=== PATIENT | female | born 1985 | race Caucasian/White ===

== ENCOUNTER 2017-04-11 22:01 | Emergency (ER) | payer MEDICAID ==
[2017-04-11 22:19] VITALS: BP 148/90
--- NOTE | 2017-04-11 22:46 | EDM.PDOC ---
ED HPI GENERAL MEDICAL PROBLEM - General Chief Complaint: ANIMAL ANATOMIST Problem Stated Complaint: Miscarriage Time Seen by Provider: 04/11/17 22:16 Source of Information: Reports: Patient History Limitations: Reports: No Limitations - History of Present Illness INITIAL COMMENTS - FREE TEXT/NARRATIVE: patient presents to ER with vaginal bleeding. She is 14 weeks however 2 weeks ago she was told there was no heartbeat and this was confirmed last week. 5 days ago she started having heavy vaginal bleeding with clots, since then she has had regular vaginal bleeding. Today the bleeding was very light and she was feeling pretty good. Tonight she was sitting and coughed and started passing a large amount of blood. she is also having some cramping. Denies dizziness or weakness. Location: Reports: Abdomen Quality: Reports: Sharp Severity: Moderate Improves with: Reports: None Worsens with: Reports: None Associated Symptoms: Reports: No Other Symptoms Lower Abdominal Pain Score (Numeric/FACES): 4 - Related Data Allergies Allergy/AdvReac Type Severity Reaction Status Date / Time Penicillins Allergy Rash Verified 04/11/17 22:13 Home Meds: Home Meds metFORMIN [Glucophage XR] 500 mg PO BID 10/24/16 [History] Past Medical History Cardiovascular History: Reports: Hypertension ANIMAL ANATOMIST History: Reports: Endocrine/Metabolic History: Reports: Other (See Below) Other Endocrine/Metabolic History: pre-diabetic - Past Surgical History Musculoskeletal Surgical History: Reports: Other (See Below) Social & Family History - Tobacco Use Smoking Status *Q: Current Every Day Smoker Years of Tobacco use: 13 Packs/Tins Daily: 0.5 - Recreational Drug Use Recreational Drug Use: No ED ROS GENERAL - Review of Systems Review Of Systems: ROS reveals no pertinent complaints other than HPI. ED EXAM - Physical Exam Exam: See Below Respiratory/Chest: No Respiratory Distress, Lungs Clear Cardiovascular: Regular Rate, Rhythm GI/Abdominal Exam: Normal Bowel Sounds, Soft, Tender Neurological: Alert, Oriented Skin Exam: Warm, Dry Course - Vital Signs Last Recorded V/S: Last Vital Signs Temp 37.2 C 04/11/17 22:18 Pulse 105 H 04/11/17 22:18 Resp 16 04/11/17 22:18 BP 148/90 H 04/11/17 22:18 Pulse Ox 97 04/11/17 22:18 - Orders/Labs/Meds Orders: Active Orders 24 hr Category Date Time Status QUANTITATIVE BHCG [REF] Stat Lab 04/11/17 22:21 Ordered Labs: Laboratory Tests 04/11/17 Range/Units 22:38 WBC 10.4 H (4.0-10.0) x10^3/uL RBC 4.56 (4.00-5.50) x10^6/uL Hgb 13.6 (12.0-16.0) g/dL Hct 39.7 (33.0-47.0) % MCV 87.1 (78.0-93.0) fL MCH 29.8 (26.0-32.0) pg MCHC 34.3 (32.0-36.0) g/dL RDW Coeff of Oma 13.7 (10.0-15.0) % Plt Count 231 (130-400) x10^3/uL Neut % (Auto) 61.1 (50.0-80.0) % Lymph % (Auto) 30.3 (25.0-50.0) % [place] % (Auto) 6.8 (2.0-11.0) % Eos % (Auto) 1.6 (0.0-4.0) % Baso % (Auto) 0.2 (0.2-1.2) % Meds: Medications Discontinued Medications Generic Name Dose Route Start Last Admin Trade Name Shaan PRN Reason Stop Dose Admin Morphine Sulfate 4 mg 04/11/17 23:04 Morphine IM 04/11/17 23:05 ONETIME ONE Departure - Departure Time of Disposition: 23:40 Disposition: Home, Self-Care 01 Condition: Good Clinical Impression: Miscarriage - Discharge Information Referrals: Mike Valdivia MD [ED Physician] - 1 Day (follow up tomorrow ) Forms: ED Department Discharge - Problem List & Annotations (1) Miscarriage SNOMED Code(s): 04910091 Code(s): O03.9 - COMPLETE OR UNSP SPONTANEOUS WITHOUT COMPLICATION Status: Acute Priority: Medium Current Visit: Yes - My Orders Last 24 Hours: My Active Orders 04/11/17 22:21 QUANTITATIVE BHCG [REF] Stat - Assessment/Plan Last 24 Hours: My Active Orders 04/11/17 22:21 QUANTITATIVE BHCG [REF] Stat Plan: patient to follow up with her ANIMAL ANATOMIST tomorrow. Advised ibuprofen 800mg every 6 hours for pain.
[2017-04-11] MEDS ORDERED: Morphine 4 MG/ML Syringe IM ONE (23:04)
== END 2017-04-11 23:22 | disposition home or self-care (01) ==
LOC: SUPCPDRO 22:01 → VM.ED 22:01
DX: O03.9 Complete or unspecified spontaneous abortion without complication (principal); O16.1 Unspecified maternal hypertension, first trimester; O99.331 Smoking (tobacco) complicating pregnancy, first trimester; Z3A.14 14 weeks gestation of pregnancy; Z88.0 Allergy status to penicillin
CPT/HCPCS: 36415; 84702; 85025; 96372; 99284; J2270

== ENCOUNTER 2017-04-21 16:37 | Emergency (ER) | payer MEDICAID ==
[2017-04-21 17:05] VITALS: BP 129/72
--- NOTE | 2017-04-21 17:13 | EDM.PDOC ---
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 She miscarried last week on Tuesday and had a D and C in [place] with Dr. Valdivia. She has been having bleeding and states that for the last couple days she has used 2-3 pads daily. When walking around today however, she felt a large gush and when she sat on the toilet had additional gushing into the toilet bowl of bright red blood. She states she is dizzy at times. She has some abdominal cramping. No SOB, chest pain, nausea/vomiting. She has been taking hydrocodone for pain management. Pain rated at 5-6/10. Onset: Today, Sudden Onset Date: 04/21/17 Onset Time: 16:00 Location: Reports: Other Quality: Reports: Ache, Pressure Severity: Moderate Improves with: Reports: None Worsens with: Reports: None Associated Symptoms: Reports: No Other Symptoms Lower Abdomen Pain Score (Numeric/FACES): 6 - Related Data Allergies Allergy/AdvReac Type Severity Reaction Status Date / Time Penicillins Allergy Rash Verified 04/11/17 22:13 Home Meds: Home Meds metFORMIN [Glucophage XR] 500 mg PO BID 10/24/16 [History] Hydrocodone/Acetaminophen [Hydrocodone-Acetaminophen 5-325] 1 tab PO Q4H PRN 06/28 [History] Past Medical History Cardiovascular History: Reports: Hypertension 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 Endocrine/Metabolic History: Reports: Other (See Below) Other Endocrine/Metabolic History: pre-diabetic - Past Surgical History Musculoskeletal Surgical History: Reports: Other (See Below) Social & Family History - Tobacco Use Smoking Status *Q: Current Every Day Smoker Years of Tobacco use: 13 Packs/Tins Daily: 0.5 - Recreational Drug Use Recreational Drug Use: No ED ROS GENERAL - Review of Systems Review Of Systems: See Below Constitutional: Reports: No Symptoms HEENT: Reports: No Symptoms Respiratory: Reports: No Symptoms Cardiovascular: Reports: No Symptoms Endocrine: Reports: No Symptoms GI/Abdominal: Reports: Abdominal Pain : Reports: Discharge (blood) Musculoskeletal: Reports: No Symptoms Skin: Reports: No Symptoms Neurological: Reports: No Symptoms Psychiatric: Reports: No Symptoms Hematologic/Lymphatic: Reports: No Symptoms Immunologic: Reports: No Symptoms ED EXAM - Physical Exam Exam: See Below Exam Limited By: No Limitations General Appearance: Alert, WD/WN, Anxious Eye Exam: Bilateral Eye: EOMI, PERRL Ears: Normal TMs Head: Atraumatic, Normocephalic Neck: Normal Inspection Respiratory/Chest: No Respiratory Distress, Lungs Clear, Normal Breath Sounds, No Accessory Muscle Use Cardiovascular: Normal Peripheral Pulses, Regular Rate, Rhythm, No Edema, No Gallop GI/Abdominal Exam: Normal Bowel Sounds, Soft, Non-Tender, No Organomegaly (Female) Exam: Vaginal Bleeding Extremities: Normal Inspection, Normal Range of Motion, Normal Capillary Refill Neurological: Alert, Oriented, CN II-XII Intact, Normal Cognition, No Motor/ Sensory Deficits Psychiatric: Normal Affect, Anxious Skin Exam: Warm, Dry, Intact Lymphatic: No Adenopathy ED Add Procedures - Additional/Other Procedure(s) Procedure(s) (Free Text): speculum exam performed with Candace Ramirez in the room. Large clot evacuated from the vaginal cavity. Golf ball to raquetball sized. No lacerations seen. Course - Vital Signs Last Recorded V/S: Last Vital Signs Temp 36.6 C 04/21/17 16:59 Pulse 92 04/21/17 16:59 Resp 16 04/21/17 16:59 BP 129/72 04/21/17 16:59 Pulse Ox 98 04/21/17 16:59 - Orders/Labs/Meds Orders: Active Orders 24 hr Category Date Time Status Sodium Chloride 0.9% [Normal Saline] 1,000 ml Med 04/21/17 17:15 Active IV ASDIRECTED Medication Orders Sodium Chloride (Normal Saline) 1,000 mls @ 125 mls/hr IV ASDIRECTED CARY Last Admin: 04/21/17 17:13 Dose: 125 mls/hr Labs: Laboratory Tests 04/21/17 04/21/17 04/21/17 Range/Units 17:10 17:10 17:10 WBC 10.4 H (4.0-10.0) x10^3/uL RBC 4.37 (4.00-5.50) x10^6/uL Hgb 13.0 (12.0-16.0) g/dL Hct 38.5 (33.0-47.0) % MCV 88.1 (78.0-93.0) fL MCH 29.7 (26.0-32.0) pg MCHC 33.8 (32.0-36.0) g/dL RDW Coeff of Oma 13.8 (10.0-15.0) % Plt Count 252 (130-400) x10^3/uL Neut % (Auto) 64.3 (50.0-80.0) % Lymph % (Auto) 27.5 (25.0-50.0) % [place] % (Auto) 6.4 (2.0-11.0) % Eos % (Auto) 1.5 (0.0-4.0) % Baso % (Auto) 0.3 (0.2-1.2) % PT 9.4 L (9.8-11.8) SEC INR 0.9 L (2.0-3.5) Sodium 141 (136-145) mmol/L Potassium 3.7 (3.5-5.1) mmol/L Chloride 104 (98-107) mmol/L Carbon Dioxide 31 (21-32) mmol/L BUN 8 (7-18) mg/dL Creatinine 0.7 (0.55-1.02) mg/dL Est Cr Clr Drug Dosing TNP Estimated GFR (MDRD) > 60 Glucose 93 (74-106) mg/dL Calcium 8.6 (8.5-10.1) mg/dL Corrected Calcium 9.24 (8.5-10.1) mg/dL Total Bilirubin 0.3 (0.2-1.0) mg/dL AST 28 (15-37) U/L ALT 51 (14-59) U/L Alkaline Phosphatase 82 (46-116) U/L Total Protein 7.1 (6.4-8.2) g/dL Albumin 3.2 L (3.4-5.0) g/dL Globulin 3.9 Albumin/Globulin Ratio 0.82 Meds: Medications Generic Name Dose Route Start Last Admin Trade Name Freq PRN Reason Stop Dose Admin Sodium Chloride 1,000 mls @ 125 mls/hr 04/21/17 17:15 08/10/17 17:13 Normal Saline IV 125 mls/hr ASDIRECTED CARY Administration - Re-Assessments/Exams Free Text/Narrative Re-Assessment/Exam: IV started in route via the ambulance. Did begin hydration with 0.9% NS. Discontinued. Patient up to bathroom with no dizziness or gushing of blood 04/21/17 18:07 I did review case with ER Dr. Azar in [place]. 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 Patient would have to go to [place]. While waiting for lab results, patients bleeding has been reduced dramatically with the removal of the clot. She would like to go home and present if she begins bleeding again. She did get up to use the rest room with no gushing of blood. Vital signs are stable, stable HgB. 04/21/17 18:16 Departure - Departure Time of Disposition: 18:15 Disposition: Home, Self-Care 01 Condition: Good Clinical Impression: Vaginal bleeding - Discharge Information Instructions: Abnormal Uterine Bleeding Additional Instructions: Do not lift until bleeding stops. This could be 1-2 weeks. If you are bleeding when you resume work, you will need other job responsibilities that do not involve lifting. Limit any ibuprofen use as this can increase bleeding risk Take your hydrocodone as prescribed for pain Continue to change your pads as needed Make sure to come back in to the ER if you develop sudden bleeding again Please call us with any questions or concerns. - Problem List & Annotations (1) Vaginal bleeding SNOMED Code(s): 746314387, [id number] Code(s): N93.9 - ABNORMAL UTERINE AND VAGINAL BLEEDING, UNSPECIFIED Status : Acute Priority: Low Current Visit: Yes - Problem List Review Problem List Initiated/Reviewed/Updated: Yes - My Orders Last 24 Hours: My Active Orders 04/21/17 17:15 Sodium Chloride 0.9% [Normal Saline] 1,000 ml IV ASDIRECTED - Assessment/Plan Last 24 Hours: My Active Orders 04/21/17 17:15 Sodium Chloride 0.9% [Normal Saline] 1,000 ml IV ASDIRECTED Assessment:: Vaginal bleeding Plan: Do not lift until bleeding stops. This could be 1-2 weeks. If you are bleeding when you resume work, you will need other job responsibilities that do not involve lifting. Limit any ibuprofen use as this can increase bleeding risk Take your hydrocodone as prescribed for pain Continue to change your pads as needed Make sure to come back in to the ER if you develop sudden bleeding again Please call us with any questions or concerns.
[2017-04-21] MEDS ORDERED: Sodium Chloride 0.9% 1,000 ML IV SCH (17:15)
[2017-04-21 17:39] LABS: CHLORIDE,CL 104 mmol/L (98-107); SODIUM,NA 141 mmol/L (136-145)
== END 2017-04-21 18:20 | disposition home or self-care (01) ==
LOC: VM.ED 16:37
DX: N93.9 Abnormal uterine and vaginal bleeding, unspecified (principal); I10 Essential (primary) hypertension; F17.210 Nicotine dependence, cigarettes, uncomplicated; Z88.0 Allergy status to penicillin
CPT/HCPCS: 36415; 80053; 85025; 85610; 96360; 99284; J7030

== ENCOUNTER 2017-06-28 00:34 | Emergency (ER) | payer MEDICAID ==
[2017-06-28] MEDS ORDERED: Promethazine 25 MG in Sodium Chloride 0.9% 100 ML IV ONE (00:49)
[2017-06-28] MEDS ORDERED: Ketorolac 30 MG/ML SDV IVPUSH ONE (00:49)
[2017-06-28] MEDS ORDERED: Sodium Chloride 0.9% 10 ML Syringe FLUSH PRN (00:52)
--- NOTE | 2017-06-28 01:06 | EDM.PDOC ---
ED HPI GENERAL MEDICAL PROBLEM - General Chief Complaint: Headache Time Seen by Provider: 06/28/17 00:39 Source of Information: Reports: Patient, Other (MRI report on MRI done today) History Limitations: Reports: No Limitations - History of Present Illness INITIAL COMMENTS - FREE TEXT/NARRATIVE: Patient had sudden onset frontal headache Tuesday night. Is not prone to headaches. She went to see Dr Quiros at [facility] today and received an injection for her headache and had an MRI. She went home and went to bed, thought her headache was getting better, but then woke up at 2330 with an excruciating headache in the bilateral temporal area. brought her in to ER for evaluation. 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 - Related Data Allergies Allergy/AdvReac Type Severity Reaction Status Date / Time lisinopril Allergy Cough Verified 06/28/17 00:38 Penicillins Allergy Rash Verified 06/28/17 00:38 Home Meds: Home Meds metFORMIN [Glucophage XR] 1,000 mg PO DAILY 10/24/16 [History] Hydrocodone/Acetaminophen [Hydrocodone-Acetaminophen 5-325] 1 tab PO Q4H PRN 06/28 [History] Losartan/Hydrochlorothiazide [Losartan-HCTZ 50-12.5 MG] 1 tab PO DAILY 06/28/17 [History] Past Medical History 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 Denies: Fever, Chills, Diaphoresis HEENT: Reports: Vision Change (blurred but not double vision with headache). Denies: Eye Discharge, Eye Pain, Hearing Loss, Rhinitis, Sinus Problem, Throat Pain Respiratory: Reports: No Symptoms. Denies: Shortness of Breath, Cough Cardiovascular: Reports: No Symptoms. Denies: Chest Pain, Dyspnea on Exertion, Lightheadedness, Palpitations, Syncope Endocrine: Reports: No Symptoms GI/Abdominal: Reports: Nausea (nausea when headache started on Tuesday but not tonight). Denies: Abdominal Pain, Anorexia, Constipation, Diarrhea, Vomiting : Reports: No Symptoms Musculoskeletal: Reports: No Symptoms Skin: Reports: No Symptoms Neurological: Reports: Headache. Denies: Confusion, Dizziness, Numbness, Paresthesia, Seizure, Trouble Speaking, Weakness Psychiatric: Reports: No Symptoms Hematologic/Lymphatic: Reports: No Symptoms Immunologic: Reports: No Symptoms - Physical Exam Exam: See Below Exam Limited By: No Limitations General Appearance: Alert, WD/WN, Moderate Distress (secondary to headache) Eye Exam: Bilateral Eye: EOMI, Normal Fundi, Normal Inspection, PERRL Ears: Normal External Exam, Normal Canal, Hearing Grossly Normal, Normal TMs Nose: Normal Inspection, No Blood, Nasal Tenderness, Other (boggy, reddened nasal mucosa with frontal and maxillary sinus tenderness with percussion) Throat/Mouth: Normal Inspection, Normal Lips, Normal Teeth, Normal Voice, No Airway Compromise, Other (posterior oropharynx erythematous but no exudate) Head Exam: Atraumatic, Normocephalic Neck: Normal Inspection, Supple, Non-Tender. No: Lymphadenopathy (L), Lymphadenopathy (R) Respiratory/Chest: No Respiratory Distress, Lungs Clear, Normal Breath Sounds Cardiovascular: Normal Peripheral Pulses, Regular Rate, Rhythm, No Edema, No JVD , No Murmur, No Rub (Female) Exam: Deferred Rectal (Female) Exam: Deferred Neuro Exam (Abbreviated): Alert, Oriented, CN II-XII Intact, Normal Cognition, No Motor/Sensory Deficits Back Exam: Normal Inspection, Full Range of Motion, NT Extremities: Normal Inspection, Normal Range of Motion, Non-Tender, No Pedal Edema, Normal Capillary Refill Psychiatric: Normal Affect, Anxious (due to discomfort) Skin Exam: Warm, Dry, Intact, Normal Color, No Rash Course - Vital Signs Last Recorded V/S: Last Vital Signs Temp 36.1 C 06/28/17 00:35 Pulse 81 06/28/17 00:35 Resp 20 06/28/17 00:35 BP 130/89 06/28/17 02:08 Pulse Ox 99 06/28/17 00:35 - Orders/Labs/Meds Orders: Active Orders 24 hr Category Date Time Status CULTURE STREP A CONFIRMATION [RM] Stat Lab 06/28/17 01:16 Received Sodium Chloride 0.9% [Saline Flush] Med 06/28/17 00:52 Active 10 ml FLUSH ASDIRECTED PRN Saline Lock Insert [OM.PC] Routine Oth 06/28/17 00:52 Ordered Medication Orders Sodium Chloride (Saline Flush) 10 ml FLUSH ASDIRECTED PRN PRN Reason: Keep Vein Open Labs: Laboratory Tests 06/28/17 06/28/17 06/28/17 Range/Units 01:16 01:45 01:45 WBC 8.9 (4.0-10.0) x10^3/uL RBC 5.11 (4.00-5.50) x10^6/uL Hgb 13.8 (12.0-16.0) g/dL Hct 43.1 (33.0-47.0) % MCV 84.3 D (78.0-93.0) fL MCH 27.0 (26.0-32.0) pg MCHC 32.0 (32.0-36.0) g/dL RDW Coeff of Oma 13.9 (10.0-15.0) % Plt Count 270 (130-400) x10^3/uL Neut % (Auto) 68.5 (50.0-80.0) % Lymph % (Auto) 23.7 L (25.0-50.0) % [place] % (Auto) 6.9 (2.0-11.0) % Eos % (Auto) 0.7 (0.0-4.0) % Baso % (Auto) 0.2 (0.2-1.2) % Sodium 140 (136-145) mmol/L Potassium 3.4 L (3.5-5.1) mmol/L Chloride 104 (98-107) mmol/L Carbon Dioxide 27 (21-32) mmol/L BUN 8 (7-18) mg/dL Creatinine 0.8 (0.55-1.02) mg/dL Est Cr Clr Drug Dosing TNP Estimated GFR (MDRD) > 60 Glucose 122 H (74-106) mg/dL Calcium 8.2 L (8.5-10.1) mg/dL Corrected Calcium 8.60 (8.5-10.1) mg/dL Total Bilirubin 0.3 (0.2-1.0) mg/dL AST 15 (15-37) U/L ALT 39 (14-59) U/L Alkaline Phosphatase 84 (46-116) U/L Total Protein 7.1 (6.4-8.2) g/dL Albumin 3.5 (3.4-5.0) g/dL Globulin 3.6 Albumin/Globulin Ratio 0.97 POC Group A Strep Rpd Negative (NEGATIVE) Meds: Medications Generic Name Dose Route Start Last Admin Trade Name Freq PRN Reason Stop Dose Admin Sodium Chloride 10 ml 06/28/17 00:52 Saline Flush FLUSH ASDIRECTED PRN Keep Vein Open Discontinued Medications Generic Name Dose Route Start Last Admin Trade Name Freq PRN Reason Stop Dose Admin Promethazine HCl 25 mg/ Sodium 101 mls @ 400 mls/hr 06/28/17 00:49 06/28/17 01:09 Chloride IV 06/28/17 01:04 400 mls/hr ONETIME ONE Administration Ketorolac Tromethamine 30 mg 06/28/17 00:49 06/28/17 01:05 Toradol IVPUSH 06/28/17 00:50 30 mg ONETIME ONE Administration Morphine Sulfate 2 mg 06/28/17 01:59 06/28/17 02:05 Morphine IVPUSH 06/28/17 02:00 2 mg ONETIME ONE Administration - Radiology Interpretation Free Text/Narrative:: We obtained radiology report from brain and brainstem MRI done today and results were read as no acute changes noted. Just mild changes of ethmoid sinusitis. - Re-Assessments/Exams Free Text/Narrative Re-Assessment/Exam: 06/28/17 02:27 Patient evaluated and labs done. Strep was negative and labs basically within normal limits. No evidence of fever, infection, nuchal rigidity, increased white count and no focal neurologic deficit noted. MRI done on 06/27/17 was within normal limits except for mild ethmoid sinusitis. IV started and patient given 30 mg IV toradol and 25 mg IV phenergan. This brought headache down to about 5/10. Patient re-examined at that time. Gait was intact without support. No nuchal rigidity or focal neurologic deficit. She is alert and oriented times three. Suspicion for SAH or meningitis is low at this time but was considered. Dr Jack, neurology at [facility] consulted via phone. Patient was given 2 mg morphine and discharged to home with recommendation to follow up with Dr Quiros in the morning. Please see discharge instructions for further details. She voiced understanding and was taken home by her . Departure - Departure Time of Disposition: 02:25 Disposition: Home, Self-Care 01 Condition: Good Clinical Impression: Headache, acute Qualifiers: Headache type: unspecified Intractability: not intractable Qualified Code(s): R51 - Headache - Discharge Information Instructions: General Headache Without Cause, [id number] Forms: ED Department Discharge Additional Instructions: Follow up with your primary care doctor in the morning. Return to ER at once if you develop facial droop, confusion, difficulty walking or talking or any new or worsening symptoms. ED Communication - Discussed Case With (1) Discussed Case With (1): Other (Discussed case with Dr Jack aviation survival technician neurology at [facility]. He indicated, that based onwhat I told him about patient, he didnt think there was any need to do a LP or other imaging at this time with a normal MRI, no evidence of infection, a normal white count and no fever.) - My Orders Last 24 Hours: My Active Orders 06/28/17 00:52 Sodium Chloride 0.9% [Saline Flush] 10 ml FLUSH ASDIRECTED PRN Saline Lock Insert [OM.PC] Routine 06/28/17 01:16 CULTURE STREP A CONFIRMATION [RM] Stat - Assessment/Plan Last 24 Hours: My Active Orders 06/28/17 00:52 Sodium Chloride 0.9% [Saline Flush] 10 ml FLUSH ASDIRECTED PRN Saline Lock Insert [OM.PC] Routine 06/28/17 01:16 CULTURE STREP A CONFIRMATION [RM] Stat
[2017-06-28] MEDS ORDERED: Morphine 2 MG/ML Syringe IVPUSH ONE (01:59)
[2017-06-28 02:09] VITALS: BP 130/89
[2017-06-28 02:11] LABS: CHLORIDE,CL 104 mmol/L (98-107); SODIUM,NA 140 mmol/L (136-145)
== END 2017-06-28 02:20 | disposition home or self-care (01) ==
LOC: VM.ED 00:34
DX: R51 Headache (principal); I10 Essential (primary) hypertension; E11.9 Type 2 diabetes mellitus without complications
CPT/HCPCS: 36415; 80053; 85025; 87081; 87880; 96365; 96375; 99284; J1885; J2270; J2550; J7050